=== PATIENT | male | born 1950 | race Caucasian/White ===

== ENCOUNTER → 2023-08-04 08:12 | Outpatient (REF) | payer MEDICARE, SELFPAY | LOC: RAD 08:12 | PROVIDERS: ATTENDING PHYSICIAN Family Medicine | DX: M25.572 Pain in left ankle and joints of left foot (principal) | CPT/HCPCS: 73610 ==

== ENCOUNTER → 2024-02-22 13:22 | Outpatient (REF) | payer MEDICARE, SELFPAY | LOC: RAD 13:22 | PROVIDERS: ATTENDING PHYSICIAN Family Medicine | DX: R60.0 Localized edema (principal) | CPT/HCPCS: 93971 ==

== ENCOUNTER → 2025-02-13 16:32 | Outpatient (REF) | payer MEDICARE, SELFPAY | LOC: RAD 16:32 | PROVIDERS: ATTENDING PHYSICIAN Physician Assistant | DX: M54.16 Radiculopathy, lumbar region (principal) | CPT/HCPCS: 72110 ==

== ENCOUNTER → 2025-02-21 13:13 | Outpatient (REF) | payer MEDICARE, SELFPAY | LOC: EMG 13:13 | PROVIDERS: ATTENDING PHYSICIAN Family Medicine | DX: I83.892 Varicose veins of left lower extremity with other complications (principal); Z87.39 Personal history of other diseases of the musculoskeletal system and connective tissue; M54.17 Radiculopathy, lumbosacral region; G62.9 Polyneuropathy, unspecified; R20.0 Anesthesia of skin | CPT/HCPCS: 93971; 95886; 95911 ==